=== PATIENT | male | born 1955 | race Caucasian/White ===

== ENCOUNTER 2018-09-07 15:55 | Emergency (ER) | payer OTHER, SELFPAY ==
--- NOTE | 2018-09-07 14:42 | ED.ABDPAIN ---
HPI - Abdominal Pain General Stated Complaint: R Back Pain, LLQ Pain
--- NOTE | 2018-09-07 16:06 | ED_ITS ---
HPI - Abdominal Pain <LEWIS Medrano - Last Filed: 09/07/18 22:21> General Chief Complaint: Back Pain/Injury Stated Complaint: R Back Pain, LLQ Pain Time Seen by Provider: 09/07/18 16:03 Source: patient Mode of arrival: ambulatory Limitations: no limitations History of Present Illness HPI narrative: 62-year-old male with history of hypertension and is a nonsmoker here for complaint of pain into his left lower back area over the past week. He states that he was lifting something heavy when the pain started. Last week. He said that pain started soon as he was started left up. He reports increased pain with motion lower back. He has been seen for this by his primary care provider and was placed on muscle relaxers. He still states that he has pain to the area. He he was seen again by his primary care provider today in the the office and stated that had left lower abdominal pain as well. He was sent to the emergency room for further evaluation due to the abdominal pain due to concern about of diverticulitis or for kidney stone. He denies any urinary tract infections symptoms he denies any blood in his urine. Last bowel movement was earlier today was unremarkable. He denies any trauma to the abdomen or the lower back. No loss of bladder or bowel control. He is ambulatory into the emergency room. MD complaint: abdominal pain Related Data Home Medications Medication Instructions Recorded Confirmed atorvastatin 40 mg PO DAILY 09/07/18 09/07/18 bisoprolol-hydrochlorothiazide 1 tab PO DAILY 09/07/18 09/07/18 cyclobenzaprine 10 mg PO TID PRN 09/07/18 09/07/18 fosinopril 40 mg PO DAILY 09/07/18 09/07/18 hydrocodone-acetaminophen 1 - 2 tab PO Q4-6H PRN 09/07/18 09/07/18 Previous Rx's Medication Instructions Recorded prednisone 40 mg PO DAILY #8 tab 09/07/18 Allergies Allergy/AdvReac Type Severity Reaction Status Date / Time No Known Drug Allergies Allergy Verified 09/07/18 16:08 Review of Systems <LEWIS Medrano - Last Filed: 09/07/18 22:21> Constitutional Denies chills, Denies fever(s), Denies lethargy and Denies weakness Eyes Denies change in vision, Denies eye discharge, Denies irritation and Denies loss of vision ENT Ears, Nose, Mouth, and Throat: Denies change in voice, Denies neck pain and Denies sore throat Cardiovascular Denies chest pain, Denies irregular heart rhythm, Denies lightheadedness, Denies palpitations, Denies dyspnea, Denies dyspnea on exertion and Denies orthopnea Respiratory Denies cough, Denies dyspnea, Denies dyspnea on exertion and Denies wheezing Gastrointestinal Comments: Pain to left lower quadrant of the abdomen. Genitourinary Denies hematuria, Denies flank pain, Denies urinary incontinence and Denies urinary urgency Musculoskeletal Denies neck pain Comments: Pain to left lower back. Integumentary/Breasts Denies pruritus, Denies erythema, Denies rash and Denies wounds Neurologic Denies loss of vision and Denies weakness Endocrine Denies palpitations Hematologic/Lymphatic Denies easy bruising Allergic/Immunologic Denies wheezing Exam <LEWIS Medrano - Last Filed: 09/07/18 22:21> Initial Vital Signs Initial Vital Signs: Vital Signs Temperature 97.5 F L 09/07/18 16:08 Pulse Rate 88 09/07/18 16:08 Respiratory Rate 18 09/07/18 16:08 Blood Pressure 151/92 H 09/07/18 16:08 Pulse Oximetry 99 09/07/18 16:08 Const General: cooperative and well developed Nutritional Appearance: well nourished Orientation: alert, awake, oriented x3 and not confused [facility] Mouth: oral mucosae normal and moist mucous membranes Eyes General: appearance normal, both eyes and all related structures Conjunctivae: conjunctivae normal Sclera: sclerae normal Pupils: PERRL EOM: EOM intact bilaterally Neck Neck: normal visual inspection, trachea midline, No lymphadenopathy, No midline deformity and No JVD Lymphatic: No lymphedema Resp Effort & Inspection: normal respiratory effort, able to speak in complete sent ences, no respiratory distress and no use of accessory muscles Auscultation: clear to auscultation bilaterally, no rales, no rhonchi and no wheezes Cardio Rate: regular rate Rhythm: regular rhythm Heart Sounds: no click, no gallops, no murmurs and no rubs Pulses: normal peripheral pulses GI Inspection: non-distended Palpation: soft, no hepatosplenomegaly, No guarding, No pulsatile mass and tender Auscultation: normal bowel sounds Other: Mild tenderness on palpation to the left lower quadrant area. Back/Spine/Pelvis Other: Left lumbar paraspinals with muscle spasm and tenderness on palpation. Di stal sensation is intact. Distal pulses are intact. Distal range of motion is intact. Skin General: no rashes or lesions noted, No jaundice and No petechiae Neuro General: alert, oriented x3, gait normal and no focal motor deficits Speech: speech normal <Macario Case DO - Last Filed: 09/11/18 18:44> Initial Vital Signs Initial Vital Signs: Vital Signs Temperature 97.5 F L 09/07/18 16:08 Pulse Rate 88 09/07/18 16:08 Respiratory Rate 18 09/07/18 16:08 Blood Pressure 151/92 H 09/07/18 16:08 Pulse Oximetry 99 09/07/18 16:08 Course <LEWIS Medrano - Last Filed: 09/07/18 22:21> Orders Ordered: Discontinued Medications Hydromorphone HCl (Dilaudid) 1 mg IV NOW ONE Stop: 09/07/18 16:19 Sodium Chloride (Normal Saline 0.9%) 1,000 mls @ 1,000 mls/hr IV BOLUS ONE Stop: 09/07/18 17:17 Last Infusion: 09/07/18 18:24 Dose: 0 mls/hr Admin: 09/07/18 16:47 Dose: 1,000 mls/hr Ketorolac Tromethamine (Toradol) 30 mg IV NOW ONE Stop: 09/07/18 16:19 Last Admin: 09/07/18 16:47 Dose: 30 mg Ondansetron HCl (Zofran) 4 mg IV NOW ONE Stop: 09/07/18 16:19 Last Admin: 09/07/18 16:47 Dose: 4 mg Vital Signs - 8 hr 09/07/18 16:08 09/07/18 18:04 Temperature 97.5 F L Pulse Rate 88 77 Respiratory Rate 18 16 Blood Pressure 151/92 H Blood Pressure [Left Arm] 144/80 H Pulse Oximetry 99 97 <Macario Case DO - Last Filed: 09/11/18 18:44> Orders Ordered: Discontinued Medications Hydromorphone HCl (Dilaudid) 1 mg IV NOW ONE Stop: 09/07/18 16:19 Sodium Chloride (Normal Saline 0.9%) 1,000 mls @ 1,000 mls/hr IV BOLUS ONE Stop: 09/07/18 17:17 Last Infusion: 09/07/18 18:24 Dose: 0 mls/hr Admin: 09/07/18 16:47 Dose: 1,000 mls/hr Ketorolac Tromethamine (Toradol) 30 mg IV NOW ONE Stop: 09/07/18 16:19 Last Admin: 09/07/18 16:47 Dose: 30 mg Ondansetron HCl (Zofran) 4 mg IV NOW ONE Stop: 09/07/18 16:19 Last Admin: 09/07/18 16:47 Dose: 4 mg Vital Signs - 8 hr 09/07/18 16:08 09/07/18 18:04 Temperature 97.5 F L Pulse Rate 88 77 Respiratory Rate 18 16 Blood Pressure 151/92 H Blood Pressure [Left Arm] 144/80 H Pulse Oximetry 99 97 MDM - Abdominal Pain <LEWIS Medrano - Last Filed: 09/07/18 22:21> Lab Data Result diagrams: 09/07/18 16:25 09/07/18 16:25 Lab Results 09/07/18 09/07/18 Range/Units 16:25 16:25 WBC 8.5 (4.5-11.0) X10^3/uL RBC 5.50 (4.5-5.9) X10^6/uL Hgb 16.9 (13.5-17.5) g/dL Hct 50.4 (41-53) % MCV 91.6 (80-100) fL MCH 30.7 (26-34) PG MCHC 33.5 (30-36) % RDW 13.6 (11.6-14.8) % Plt Count 169 (150-400) X10^3/uL Neut % (Auto) 65.2 (50-75) % Lymph % (Auto) 20.6 L (25-40) % [place] % (Auto) 8.5 (3-14) % Eos % (Auto) 4.8 H (2-4) % Baso % (Auto) 0.9 (0-2) % Neut # (Auto) 5500 (0024-9702) /uL Lymph # (Auto) 1700 (6544-5659) /uL [place] # (Auto) 700 (0-900) /uL Eos # (Auto) 400 (0-450) /uL Baso # (Auto) 100 (0-100) /uL Sodium 137 (137-145) mmol/L Potassium 4.3 (3.4-5.1) mmol/L Chloride 101 (98-107) mmol/L Carbon Dioxide 21 L (22-32) mmol/L BUN 19 (9-20) mg/dL Creatinine 1.30 H (0.66-1.25) mg/dL Estimated GFR 55.9 L (>60) mL/min BUN/Creatinine Ratio 14.6 (6-22) Glucose 107 (80-110) mg/dL Calcium 10.0 (8.4-10.2) mg/dL Total Bilirubin 0.8 (0.2-1.3) mg/dL AST 33 (17-59) IU/L ALT 55 (21-72) IU/L Alkaline Phosphatase 40 (38-126) U/L Total Protein 8.0 (6.3-8.2) g/dL Albumin 4.7 (3.5-5.0) g/dL Globulin 3.3 (1.7-4.1) g/dL Albumin/Globulin Ratio 1.4 (1.0-2.8) Lipase 81 (23-300) U/L Point of care testing: Urine Dip Bedside Urine Glucose Negative Bedside Urine Bilirubin - Negative Bedside Urine Ketone - Negative Urine Specific [place] 1.025 Bedside Urine Occult Blood - Negative Bedside Urine pH 6.0 Bedside Urine Protein - Negative Bedside Urine Urobilinogen - Negative Bedside Urine Nitrite - Negative Bedside Urine Leukocytes - Negative Esterase Imaging Data CT scan - abdomen: Radiologist's impression: [place] [address] CT Scan Report Signed Patient: Gil Bagley CMR#: [id number] : 6Acct:[id number] Age/Sex: 62 / MDate of Service: 09/07/18 Loc: ED Accession Number: [id number] Procedure: CT abdomen pelvis w con Ordering Provider: Dwight Vazquez PROCEDURE: CT ABDOMEN PELVIS W CON INDICATIONS: Pain into left lower quadrant radiating to back TECHNIQUE: After the administration of intravenous contrast, 5 mm thick sections acquired from the diaphragm to the symphysis. 5 mm coronal and sagittal reformats were acquired. For radiation dose reduction, the following was used: automated exposure control, adjustment of mA and/or kV according to patient size. COMPARISON: None. FINDINGS: Image quality: Excellent. ABDOMEN: Lung bases: Lung bases are clear. Heart size is normal. Solid organs: There is diffuse hepatic fatty infiltration. Liver is normal in size and enhancement. Gallbladder is normal. Biliary system is non dilated. Pancreas enhances normally. Spleen is normal in size and enhancement. No adrenal nodules. Kidneys demonstrate normal size and enhancement, without hydronephrosis. Peritoneum and bowel: Scattered colonic diverticula are present. Bowel loops demonstrate normal wall thickness and caliber. No free fluid or air. Nodes and vessels: No retroperitoneal or mesenteric adenopathy by size criteria. Aorta and inferior vena cava are normal in size. Miscellaneous: No ventral hernias. PELVIS: Genitourinary: Bladder is mildly concentrically thickened. Enlarged prostate. Miscellaneous: No inguinal hernias or adenopathy. Bones: No suspicious bony lesions. No vertebral body compression fractures. Severe L5-S1 disc degeneration. Small round lucencies are noted in L2, L3 and L4. IMPRESSION: 1. Diverticulosis without acute diverticulitis. 2. Concentric thickening of urinary bladder. This finding may be secondary to cystitis or bladder outlet obstruction. Recommend clinical correlation. 3. Hepatic steatosis. 4. Severe degenerative disc disease at L5-S1. 5. Small round lucencies are noted in L2, L3, and L4. Non-urgent MRI is suggested for followup. Dictated by: Eula Montiel M.D. on 09/07/2018 at 17:32 Approved by: Eula Montiel M.D. on 09/07/2018 at 17:37 MDM Narrative Medical decision making narrative: CBC and Chem panel were obtained were unremarkable. Lipase was unremarkable. Urinalysis was negative for urinary tract infection. CT of the abdomen shows diverticulosis to the colon however no signs of diverticulitis. CT also shows some degenerative changes to L5 and S1. Small lucencies are seen at L2-L3 and L4. Signs and symptoms presents as acute lumbar strain. Will have him continue taking the muscle relaxer as prescribed. Use [id number] ibuprofen as needed for discomfort. Small amount of prednisone as prescribed for anti-inflammatory purposes. Follow up with primary care provider. Return emergency room for any worsening symptoms. <Macario Case, DO - Last Filed: 09/11/18 18:44> Lab Data Lab Results 09/07/18 09/07/18 Range/Units 16:25 16:25 WBC 8.5 (4.5-11.0) X10^3/uL RBC 5.50 (4.5-5.9) X10^6/uL Hgb 16.9 (13.5-17.5) g/dL Hct 50.4 (41-53) % MCV 91.6 (80-100) fL MCH 30.7 (26-34) PG MCHC 33.5 (30-36) % RDW 13.6 (11.6-14.8) % Plt Count 169 (150-400) X10^3/uL Neut % (Auto) 65.2 (50-75) % Lymph % (Auto) 20.6 L (25-40) % [place] % (Auto) 8.5 (3-14) % Eos % (Auto) 4.8 H (2-4) % Baso % (Auto) 0.9 (0-2) % Neut # (Auto) 5500 (3066-4379) /uL Lymph # (Auto) 1700 (4531-3324) /uL [place] # (Auto) 700 (0-900) /uL Eos # (Auto) 400 (0-450) /uL Baso # (Auto) 100 (0-100) /uL Sodium 137 (137-145) mmol/L Potassium 4.3 (3.4-5.1) mmol/L Chloride 101 (98-107) mmol/L Carbon Dioxide 21 L (22-32) mmol/L BUN 19 (9-20) mg/dL Creatinine 1.30 H (0.66-1.25) mg/dL Estimated GFR 55.9 L (>60) mL/min BUN/Creatinine Ratio 14.6 (6-22) Glucose 107 (80-110) mg/dL Calcium 10.0 (8.4-10.2) mg/dL Total Bilirubin 0.8 (0.2-1.3) mg/dL AST 33 (17-59) IU/L ALT 55 (21-72) IU/L Alkaline Phosphatase 40 (38-126) U/L Total Protein 8.0 (6.3-8.2) g/dL Albumin 4.7 (3.5-5.0) g/dL Globulin 3.3 (1.7-4.1) g/dL Albumin/Globulin Ratio 1.4 (1.0-2.8) Lipase 81 (23-300) U/L Point of care testing: Urine Dip Bedside Urine Glucose Negative Bedside Urine Bilirubin - Negative Bedside Urine Ketone - Negative Urine Specific [place] 1.025 Bedside Urine Occult Blood - Negative Bedside Urine pH 6.0 Bedside Urine Protein - Negative Bedside Urine Urobilinogen - Negative Bedside Urine Nitrite - Negative Bedside Urine Leukocytes - Negative Esterase Discharge Plan Departure Patient Disposition: Home Clinical Impression: Strain of lumbar region Qualifiers: Encounter type: initial encounter Qualified Code(s): S39.012A - Strain of muscle, fascia and tendon of lower back, initial encounter Discharge Date/Time: 09/07/18 18:25 Interventions: ED Discharge Assessment Last Done: 09/07/18 18:24 Instructions: DI for Low Back Pain Activity Restrictions/Additional Instructions: CT of the abdomen was obtained and it shows that there is diverticulosis however there is no a acute infection call diverticulitis at this time. CT also shows that there is degenerative changes to the lumbar spine area. Recommend following up with primary care provider and if continued symptoms MRI. Use [id number] ibuprofen as needed for discomfort. Use currently prescribed muscle relaxers as needed to help keep muscles loose. Gentle range of motion painful areas to also keep muscle loose. Short course of prednisone is prescribed help with anti-inflammatory aspects. Follow up with her primary care provider in the next few days. Return emergency room for any worsening s ymptoms. Prescriptions: New prednisone 20 mg tablet 40 mg PO DAILY Qty: 8 RF: 0 No Action cyclobenzaprine 10 mg tablet 10 mg PO TID PRN (Reason: Spasms) RF: 0 atorvastatin 40 mg tablet 40 mg PO DAILY RF: 0 hydrocodone-acetaminophen 5-325 mg tablet 1 - 2 tab PO Q4-6H PRN (Reason: pain) RF: 0 bisoprolol-hydrochlorothiazide 5-6.25 mg tablet 1 tab PO DAILY RF: 0 fosinopril 40 mg tablet 40 mg PO DAILY RF: 0 Referrals: Bobbi Bertrand ARNP [Primary Care Provider] - <Macario Case DO - Last Filed: 09/11/18 18:44> Cosign ED Attending Cosignature Attestation: I was available for consultation during this patient's emergency department encounter
[2018-09-07 16:08] VITALS: BP 151/92; PULSE 88; RESP 18; TEMP 36.4; O2SAT 99; BMI 30.4
--- NOTE | 2018-09-07 16:19 | DI.CT.S_ITS ---
PROCEDURE: CT ABDOMEN PELVIS W CON INDICATIONS: Pain into left lower quadrant radiating to back TECHNIQUE: After the administration of intravenous contrast, 5 mm thick sections acquired from the diaphragm to the symphysis. 5 mm coronal and sagittal reformats were acquired. For radiation dose reduction, the following was used: automated exposure control, adjustment of mA and/or kV according to patient size. COMPARISON: None. FINDINGS: Image quality: Excellent. ABDOMEN: Lung bases: Lung bases are clear. Heart size is normal. Solid organs: There is diffuse hepatic fatty infiltration. Liver is normal in size and enhancement. Gallbladder is normal. Biliary system is non dilated. Pancreas enhances normally. Spleen is normal in size and enhancement. No adrenal nodules. Kidneys demonstrate normal size and enhancement, without hydronephrosis. Peritoneum and bowel: Scattered colonic diverticula are present. Bowel loops demonstrate normal wall thickness and caliber. No free fluid or air. Nodes and vessels: No retroperitoneal or mesenteric adenopathy by size criteria. Aorta and inferior vena cava are normal in size. Miscellaneous: No ventral hernias. PELVIS: Genitourinary: Bladder is mildly concentrically thickened. Enlarged prostate. Miscellaneous: No inguinal hernias or adenopathy. Bones: No suspicious bony lesions. No vertebral body compression fractures. Severe L5-S1 disc degeneration. Small round lucencies are noted in L2, L3 and L4. IMPRESSION: 1. Diverticulosis without acute diverticulitis. 2. Concentric thickening of urinary bladder. This finding may be secondary to cystitis or bladder outlet obstruction. Recommend clinical correlation. 3. Hepatic steatosis. 4. Severe degenerative disc disease at L5-S1. 5. Small round lucencies are noted in L2, L3, and L4. Non-urgent MRI is suggested for followup. Dictated by: Eula Montiel M.D. on 09/07/2018 at 17:32 Approved by: Eual Montiel M.D. on 09/07/2018 at 17:37
[2018-09-07 16:36] LABS: Add Manual Diff / Slide Review NO; Basophils Absolute Auto 100 /uL (0-100); Basophils Percent Auto 0.9 % (0-2); Eosinophils Absolute Auto 400 /uL (0-450); Eosinophils Percent Auto 4.8 % (2-4); Hematocrit 50.4 % (41-53); Hemoglobin 16.9 g/dL (13.5-17.5); Lymphocytes Absolute Auto 1700 /uL (1100-4500); Lymphocytes Percent Auto 20.6 % (25-40); Mean Corpuscular HGB Conc 33.5 % (30-36); Mean Corpuscular Hemoglobin 30.7 PG (26-34); Mean Corpuscular Volume 91.6 fL (80-100); Monocytes Absolute Auto 700 /uL (0-900); Monocytes Percent Auto 8.5 % (3-14); Neutrophils Absolute Auto 5500 /uL (1500-7000); Neutrophils Percent Auto 65.2 % (50-75); Platelet Count 169 X10^3/uL (150-400); Red Cell Distribution Width 13.6 % (11.6-14.8); White Blood Cell Count 8.5 X10^3/uL (4.5-11.0)
[2018-09-07] MEDS: ONDANSETRON 4 MG/2 ML INJ IV (16:47)
[2018-09-07] MEDS: SODIUM CHLORIDE 0.9% 1,000 ML 1000 ML IV (16:47)
[2018-09-07] MEDS: KETOROLAC 60 MG/2 ML VIAL 30 MG IV (16:47)
[2018-09-07 16:55] LABS: Alanine Aminotransferase 55 IU/L (21-72); Albumin 4.7 g/dL (3.5-5.0); Albumin Globulin Ratio 1.4 (1.0-2.8); Alkaline Phosphatase 40 U/L (38-126); Aspartate Aminotransferase 33 IU/L (17-59); BUN Creatinine Ratio 14.6 (6-22); Bilirubin Total 0.8 mg/dL (0.2-1.3); Blood Urea Nitrogen 19 mg/dL (9-20); Carbon Dioxide 21 mmol/L (22-32); Chloride 101 mmol/L (98-107); Estimated Glomerular Filt Rate 55.9 mL/min (>60); Globulin 3.3 g/dL (1.7-4.1); Glucose 107 mg/dL (80-110); HEMOLYSIS 41 (0-50); Lipase 81 U/L (23-300); Potassium 4.3 mmol/L (3.4-5.1); Sodium 137 mmol/L (137-145)
[2018-09-07 18:04] VITALS: BP 144/80; PULSE 77; RESP 16; O2SAT 97
== END 2018-09-07 18:25 | disposition home or self-care (01) ==
PROVIDERS: Emergency Provider Nurse Practitioner Family; Family Provider Nurse Practitioner Family; PCP Nurse Practitioner Family
DX: S39.012A Strain of muscle, fascia and tendon of lower back, initial encounter (principal)
CPT/HCPCS: 36591; 74177; 80053; 81003; 83690; 85025; 96361; 96374; 96375; 99283; 99285; J1885; J2405

== ENCOUNTER → 2018-09-12 06:30 | Outpatient (CLI) | payer OTHER, SELFPAY ==
--- NOTE | 2018-09-12 | DI.MRI.S_ITS ---
PROCEDURE: MR LUMBAR SPINE WO/W CON INDICATIONS: Other intervertebral disc degeneration, lumbar reg TECHNIQUE: Noncontrast sagittal T1 spin echo and T2 fast spin echo, sagittal STIR, axial T1 and T2 fast spin echo through the lumbar spine. In cases with scoliosis, additional coronal T2 fast spin echo may be performed. After the administration of contrast, sagittal and axial T1 spin echo with fat saturation through the lumbar spine. COMPARISON: [facility], CT, CT ABDOMEN PELVIS W CON, 09/07/2018, 17:08. FINDINGS: Image quality: Excellent. Alignment and curvature: Straightening of the normal lumbar lordosis. Marrow: Severe L5-S1 endplate degenerative signal change and disc height loss. No acute vertebral body compression fractures. No suspicious marrow enhancement. Spinal cord: Conus medullaris terminates at the L1-L2 level. Visualized spinal cord demonstrates normal signal, without suspicious enhancement. Paraspinous soft tissues: There is rim enhancing, left-sided mildly T2 hyperintense focus along the posterior margin of the L1 vertebral body measuring 1.8 x 0.6 cm on sagittal image 11 series 9. L1-L2: Mild left canal narrowing related to rim-enhancing focus along the posterior margin of L1 vertebral body described above. There is L1-L2 left lateral recess, probably effacement left lateral recess. The right lateral recess appears patent. Mild bilateral foraminal stenosis. L2-L3: Broad-based posterior disc bulge and bilateral facet arthropathy. Ligamentum flavum hypertrophy also noted. Mild central canal narrowing. Lateral recesses appear grossly patent bilaterally. Mild bilateral foraminal narrowing. L3-L4: Mild broad-based posterior disc bulge and bilateral facet arthropathy. Mild central canal narrowing. The lateral recesses appear grossly patent. No foraminal stenosis L4-L5: Broad-based posterior disc bulge and small superimposed central disc protrusion. Bilateral facet arthropathy. Mild central canal narrowing. Mild partial effacement of both lateral recesses although symmetric in nature. Mild left and right foraminal narrowing L5-S1: Broad-based posterior disc bulge and bilateral facet arthropathy. No high-grade central canal narrowing. Mild partial effacement of both lateral recesses, with symmetric appearance. Severe right and left foraminal stenoses With respect to the small round lucent appearance involving the lower vertebral bodies seen on the comparison CT dated 09/07/18, no associated enhancement or suspicious marrow signal changes are seen in these regions. These could represent small vertebral body hemangiomas although too small to characterize definitively There are scattered small Schmorl's nodes IMPRESSION: Rim-enhancing left-sided focal heterogeneous signal along the posterior margin of the L1 vertebral body, potentially representing extruded disc material versus age-indeterminate epidural fluid collection/hematoma, or potentially developing epidural abscess. This appears to efface the L1-L2 left lateral recess, suspicious for impingement of the descending left L2 nerve root. Recommend surgical consultation and clinical correlation. Findings are personally telephoned and discussed with referring clinician Bobbi Bertrand [facility] [id number] hours 09/12/18. Severe L5-S1 disc degeneration with severe bilateral L5-S1 foraminal stenoses. Dictated by: Tc Phan M.D. on 09/12/2018 at 9:22 Approved by: Tc Phan M.D. on 09/12/2018 at 9:44
== END ==
PROVIDERS: Family Provider Nurse Practitioner Family; PCP Nurse Practitioner Family; Visit Provider Nurse Practitioner Family
DX: M51.36 Other intervertebral disc degeneration, lumbar region (principal); M51.37 Other intervertebral disc degeneration, lumbosacral region; M48.07 Spinal stenosis, lumbosacral region
CPT/HCPCS: 72158

== ENCOUNTER 2021-04-12 21:04 | Emergency (ER) | payer MEDICARE, OTHER, SELFPAY ==
[2021-04-12 21:05] VITALS: BP 198/108; PULSE 97; RESP 20; TEMP 36.4; O2SAT 98; BMI 28.8
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
--- NOTE | 2021-04-12 21:20 | DI.CT.S_ITS ---
PROCEDURE: CT THORACIC SPINE WO CON INDICATIONS: upper midline bony tenderness TECHNIQUE: Noncontrast 3 mm thick sections acquired through the region of interest in the thoracic spine. Sagittal and coronal reformats were then constructed. For radiation dose reduction, the following was used: automated exposure control. COMPARISON: None. FINDINGS: Image quality: Excellent. Bones: There is normal overall bony alignment. No acute vertebral body compression fractures. No suspicious sclerotic or lytic bony lesions. There are degenerative disc in thoracic spine, most pronounced at T3-T4, T4-T5 and T5-T6. Large anterior osteophyte in the lower thoracic spine and upper lumbar spine.. Central spinal canal is of normal overall caliber. Soft tissues: No paravertebral masses or hematomas. Visualized posteromedial lungs appear clear. IMPRESSION: No thoracic spine fracture. Degenerative changes are noted. Dictated by: Eula Montiel M.D. on 04/12/2021 at 21:54 Approved by: Eula Montiel M.D. on 04/12/2021 at 21:57
--- NOTE | 2021-04-12 21:20 | DI.CT.S_ITS ---
PROCEDURE: CT HEAD/BRAIN WO CON INDICATIONS: head injury TECHNIQUE: Noncontrast 4.5 mm thick angled axial sections acquired from the foramen magnum to the vertex, with coronal and sagittal reformats. For radiation dose reduction, the following was used: automated exposure control, adjustment of mA and/or kV according to patient size. COMPARISON: None. FINDINGS: Image quality: Excellent. CSF spaces: Basal cisterns are patent. No extra-axial fluid collections. The ventricles are symmetric in size and shape. Brain: No intracranial bleeds or masses. There is cerebral volume loss for age, with resultant ventricular and sulcal prominence. There are periventricular and deep white matter chronic small vessel ischemic changes. There is intracranial internal carotid artery atherosclerosis. Skull and face: Calvarium and visualized facial bones appear intact, without suspicious lesions. Right frontal scalp laceration/contusion. Sinuses: Visualized sinuses and mastoids are clear. IMPRESSION: 1. No acute intracranial abnormalities. No intracranial bleed or skull fracture. 2. Cerebral volume loss and chronic microvascular ischemic changes. Dictated by: Eula Montiel M.D. on 04/12/2021 at 21:46 Approved by: Eula Montiel M.D. on 04/12/2021 at 21:48
[2021-04-12] MEDS: LIDOCAINE 1% W/EPI 1 ML SUBCUT (21:27)
--- NOTE | 2021-04-12 21:48 | PC.NURSE ---
Moist gauze applied to R eyebrow
[2021-04-12] MEDS: cephALEXin 250 MG PREPACK 1 BOTTLE MISC (23:23)
[2021-04-12] MEDS: ONDANSETRON 4 MG ODT PREPACK 1 BOTTLE MISC (23:23)
[2021-04-12] MEDS: HYDROCODONE/ACET 5/325 PREPACK 1 BOTTLE MISC (23:24)
[2021-04-12 23:38] VITALS: BP 175/73; PULSE 101; RESP 20; TEMP 37.8; O2SAT 96
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
== END 2021-04-12 23:39 | disposition home or self-care (01) ==
PROVIDERS: Emergency Provider Emergency Medicine; Family Provider Nurse Practitioner Family; PCP Nurse Practitioner Family
DX: S06.0X1A Concussion with loss of consciousness of 30 minutes or less, initial encounter (principal); S01.81XA Laceration without foreign body of other part of head, initial encounter; S02.2XXA Fracture of nasal bones, initial encounter for closed fracture; Y04.2XXA Assault by strike against or bumped into by another person, initial encounter; W03.XXXA Other fall on same level due to collision with another person, initial encounter
CPT/HCPCS: 13132; 70450; 70486; 72125; 72128; 99283; 99284

== ENCOUNTER → 2022-10-26 15:59 | Outpatient (CLI) | payer MEDICARE, OTHER, SELFPAY ==
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
== END ==
PROVIDERS: Family Provider Nurse Practitioner Family; PCP Nurse Practitioner Family; Referring Provider Family Medicine; Visit Provider Family Medicine
DX: S46.311A Strain of muscle, fascia and tendon of triceps, right arm, initial encounter (principal); M79.89 Other specified soft tissue disorders; X58.XXXA Exposure to other specified factors, initial encounter
CPT/HCPCS: 73221